=== PATIENT | female | born 1995 | race Caucasian/White ===

== ENCOUNTER → 2018-12-16 | Outpatient (CLI) | payer OTHER ==
--- NOTE | 2018-12-16 16:02 | US ---
EXAMINATION TYPE: Transabdominal DATE OF EXAM: 12/16/2018 3:48 PM COMPARISON: NONE CLINICAL HISTORY: Z36 CONFIRM DATES. EXAM PERFORMED: Transabdominal (TA) EXAM MEASUREMENTS: GESTATIONAL AGE / DATING Physician Established: (11 weeks/1 days) EDC: 07/06/2019 Dates by LMP: (11 weeks/1 days) EDC: 07/06/2019 Dates by First Scan: no previous Dates by Current Scan for: (10 weeks/5 days) EDC: 07/09/2019 MATERNAL ANATOMY Uterus: 10.1 x 7.7 x 9.5 cm Right Ovary: not identified Left Ovary: 3.7 x 2.0 x 2.1 cm Post CDS / Adnexa: wnl Presence of free fluid: no Presence of corpus luteal cyst: no Presence of subchorionic bleed: no GESTATION / SURVEY CRL: 3.8 (10 weeks/5 days) Yolk Sac (normal less than 6mm): 5 mm Heart Rate: 161 bpm Rhythm: Normal IUP: Viable IUP Date of LMP: 09/29/2018 Single live intrauterine gestation is confirmed as gestational sac, yolk sac, pole are identifi ed. No free fluid in pelvic cul-de-sac. Left ovary is seen. Right ovary is not clearly identified. No suspicious adnexal lesions are present. IMPRESSION: Single live intrauterine gestation is confirmed, mean crown-rump length of 3.8 cm corresp onds to 10 week 5 day old fetus.
== END | disposition home or self-care (01) ==
LOC: RADUSWWP 15:34
PROVIDERS: ATTEND Obstetrics & Gynecology
DX: Z36.89 Encounter for other specified antenatal screening (principal); Z3A.10 10 weeks gestation of pregnancy
CPT/HCPCS: 76801

== ENCOUNTER 2019-06-26 02:10 | Inpatient (IN) | payer OTHER ==
[2019-06-26] MEDS ORDERED: CARBOPROST TROMETHAMINE 250 MCG/ML 1 ML AMP IM PRN (02:31)
[2019-06-26] MEDS ORDERED: TERBUTALINE 1 MG/ML VIAL SQ PRN (02:31)
[2019-06-26] MEDS ORDERED: LIDOCAINE 0.5% (PF) 5 MG/ML (50 ML SDV) SQ PRN (02:31)
[2019-06-26] MEDS ORDERED: METHYLERGONOVINE 0.2 MG/ML 1 ML AMP IM PRN (02:31)
[2019-06-26] MEDS ORDERED: OXYTOCIN 10 UNIT/ML 1 ML VIAL IM PRN (02:31)
[2019-06-26] MEDS ORDERED: LACTATED RINGERS 1,000 ML IV SCH (02:45)
[2019-06-26 03:24] LABS: Basophils # (A) 0.1 k/uL (0-0.2); Basophils % (A) 1 %; Eosinophils % (A) 0 %; HCT 37.2 % (34.0-46.0); HGB 12.5 gm/dL (11.4-16.0); Lymphocytes # (A) 3.2 k/uL (1.0-4.8); Lymphocytes % (A) 22 %; MCH 30.4 pg (25.0-35.0); MCHC 33.7 g/dL (31.0-37.0); MCV 90.3 fL (80.0-100.0); Mean Platelet Volume 8.5; Monocytes # (A) 0.7 k/uL (0-1.0); Monocytes % (A) 5 %; Neutrophils # (A) 10.1 k/uL (1.3-7.7); Neutrophils % (A) 70 %; Platelet Count 346 k/uL (150-450); RBC 4.12 m/uL (3.80-5.40); RDW 12.2 % (11.5-15.5); WBC 14.5 k/uL (3.8-10.6)
[2019-06-26 03:35] LABS: Amphetamine Screen,Urine Detected (NotDetected); Barbiturate Screen,Urine Not Detected (NotDetected); Benzodiazepines Screen,Urine Not Detected (NotDetected); Cocaine Screen,Urine Not Detected (NotDetected); Methadone Screen, Urine Not Detected (NotDetected); Opiate Screen,Urine Not Detected (NotDetected); Oxycodone Screen, Urine Not Detected (NotDetected); Phencyclidine Screen,Urine Not Detected (NotDetected); Tricyclic Antidepressant,Urine Not Detected (NotDetected); Urn Cannabinoid Scrn Detected (NotDetected)
[2019-06-26] MEDS ORDERED: BUTORPHANOL 1 MG/ML 1 ML VIAL IV PRN (03:58)
--- NOTE | 2019-06-26 05:22 | P.HPOB ---
History of Present Illness H&P Date: 06/26/19 Chief Complaint: Contractions This is a 23-year-old female 2 para 0 with an estimated date of confinement of 07/06/2019, estimated gestational age of 38-4/7 weeks, who presents to labor and delivery with complaints of contractions that have become stronger. care has been with Dr. Diana and has been uncomplicated per patient. labs: Blood type-O+ Antibody screen-negative Obstetrical ultrasound-normal anatomy One hour Glucola-67 Group B streptococcus-negative Obstetrical history: . History of 1 termination of . 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 History of Any Multi-Drug Resistant Organisms: None Reported Past Surgical History: No Surgical Hx Reported Past Anesthesia/Blood Transfusion Reactions: No Reported Reaction Past Psychological History: No Psychological Hx Reported Smoking Status: Current every day smoker Past Alcohol Use History: None Reported Past Drug Use History: None Reported, Marijuana (Quit using early in ) - Past Family History Mother Family Medical History: No Reported History Medications and Allergies Home Medications Medication Instructions Recorded Confirmed Type No Known Home Medications 06/26/19 06/26/19 History Allergies Allergy/AdvReac Type Severity Reaction Status Date / Time No Known Allergies Allergy Verified 06/26/19 02:28 Exam Osteopathic Statement: *. No significant issues noted on an osteopathic structural exam other than those noted in the History and Physical/Consult. Vital Signs Temp Pulse Resp BP Pulse Ox 06/26/19 02:41 97.3 F L 101 H 18 134/69 98 06/26/19 02:28 97.3 F L 101 H 20 162/86 Intake and Output 06/25/19 06/25/19 06/26/19 14:59 22:59 06:59 Other: Weight 69.4 kg HEENT: Within normal limits Heart: Regular rate and rhythm Lungs: Clear to auscultation bilaterally Abdomen: Cervix: Initially on admission is 5-1/2 cm 100% and -1 station with intact membr anes and some bloody show noted heart tones: Category 1 Contractions: Every 2-3 minutes Extremities: Negative Homans Results Result Diagrams: 06/26/19 02:50 Abnormal Lab Results - Last 24 Hours (Table) 06/26/19 06/26/19 Range/Units 02:50 02:50 WBC 14.5 H (3.8-10.6) k/uL Neutrophils # 10.1 H (1.3-7.7) k/uL Ur Amphetamines Screen Detected H (NotDetected) U Marijuana (THC) Screen Detected H (NotDetected) Assessment and Plan (1) 38 weeks gestation of Current Visit: Yes Status: Acute Code(s): Z3A.38 - 38 WEEKS GESTATION OF SNOMED Code(s): 17999916 Plan: Admission for active labor. Expectant management. Stadol or epidural if desired for pain control.
--- NOTE | 2019-06-26 05:26 | P.PROBDLV ---
Vaginal Delivery Note - . Vaginal Delivery Note: Upon my arrival I checked the patient and she was noted to be 7-8 cm/100%/-1-0 station with bulging bag. She had received Stadol shortly before that time. Artificial rupture membranes is carried out and thin meconium is noted. Shortly thereafter, she had an urge to push and was noted to be complete and +4 station. She began pushing. Infant's head came to a crown. At this time heart tones were intermittent but when we were able to auscultate heart tones, heart tones were noted to be in the 60s. At this point in time, perineum was anesthetized with 1% lidocaine and a small episiotomy was cut. As soon as episiotomy is cut with one further push, the infant's head delivered across the perineum followed by the anterior shoulder. Nose and mouth were bulb suctioned at the perineum. With one further push, the remainder the infant easily delivered and was placed on mother's abdomen. Cord was clamped and cut and infant was taken to warmer for evaluation. WELFARE OFFICER was standing by but baby was crying briskly. A viable female is noted with scores of 8 at 1 minute and 9 at 5 minutes and infant weight of 5 lbs. 11 oz. Placenta delivered shortly thereafter, with a three-vessel cord. Cord blood was obtained secondary to O+ blood type. Uterus contracted fairly well after uterine massage was carried out. IM oxytocin was given due to her IV went subcutaneous. IV was restarted. Inspection of the perineum revealed a midline episiotomy with no further extension. This area was anesthetized with 1% lidocaine and then sutured with 2-0 and 3-0 Vicryl suture in the usual multilayer fashion. There were noted to be bilateral periurethral abrasions that were noted to be hemostatic. Several blood clots were expressed from the uterus and once the IV was running oxytocin was given. Uterus did firm up. Estimated blood loss is approximately 200 mL's.
[2019-06-26] MEDS ORDERED: LANOLIN CREAM 5 GM TUBE TOPICAL PRN (05:33)
[2019-06-26] MEDS ORDERED: OXYTOCIN 20 UNITS/1000 ML NS 1,000 ML IV SCH (05:33)
[2019-06-26] MEDS ORDERED: diphenhydrAMINE 50 MG/ML 1 ML VIAL IVP PRN ×2 (05:33)
[2019-06-26] MEDS ORDERED: diphenhydrAMINE 25 MG CAP PO PRN (05:33)
[2019-06-26] MEDS ORDERED: BENZOCAINE/MENTHOL SPRAY 1 GM/SPRAY AEROSOL TOPICAL PRN (05:33)
[2019-06-26] MEDS ORDERED: ACETAMINOPHEN TAB 325 MG TAB PO PRN (05:33)
[2019-06-26] MEDS ORDERED: HYDROCORTISONE 2.5% RECTAL CREAM 30 GM TUBE RECTAL PRN (05:33)
[2019-06-26] MEDS ORDERED: ZOLPIDEM 5 MG TAB PO PRN (05:33)
[2019-06-26] MEDS ORDERED: SIMETHICONE 80 MG CHEWABLE PO PRN (05:33)
[2019-06-26] MEDS ORDERED: diphenhydrAMINE 50 MG CAP PO PRN (05:33)
[2019-06-26] MEDS ORDERED: WITCH HAZEL 1 EACH MED..PAD TOPICAL PRN (05:33)
[2019-06-26] MEDS: IBUPROFEN 600 MG TAB PO PRN ×2 (05:44→19:50)
[2019-06-26] MEDS ORDERED: DIPH,PERTUS(ACELL)TETVAC-LF 0.5 ML VIAL IM ONE (06:24)
[2019-06-26] MEDS ORDERED: INFLUENZA VACCINE (6 MOS+) 60 MCG/0.5 ML SYRINGE IM ONE (06:24)
[2019-06-26] MEDS: SENNOSIDES-DOCUSATE SODIUM 1 EACH TAB PO SCH ×2 (08:53→20:25)
[2019-06-26 14:07] LABS: Hepatitis B Surface Antigen Non-Reactive (Non-Reactive)
[2019-06-26 16:48] VITALS: RESP 14
[2019-06-27 07:06] LABS: Basophils % (A) 0 %; Eosinophils # (A) 0.1 k/uL (0-0.7); Eosinophils % (A) 0 %; HCT 36.2 % (34.0-46.0); HGB 11.9 gm/dL (11.4-16.0); Lymphocytes # (A) 1.1 k/uL (1.0-4.8); Lymphocytes % (A) 10 %; MCH 30.2 pg (25.0-35.0); MCHC 32.8 g/dL (31.0-37.0); MCV 92.1 fL (80.0-100.0); Mean Platelet Volume 8.5; Monocytes # (A) 0.7 k/uL (0-1.0); Monocytes % (A) 6 %; Neutrophils # (A) 9.4 k/uL (1.3-7.7); Neutrophils % (A) 82 %; Platelet Count 301 k/uL (150-450); RBC 3.93 m/uL (3.80-5.40); RDW 12.3 % (11.5-15.5); WBC 11.5 k/uL (3.8-10.6)
[2019-06-27 08:56] VITALS: BP 119/68; PULSE 68; TEMP 98.2
--- NOTE | 2019-06-27 10:18 | P.DS ---
Providers Date of admission: 06/26/19 02:28 Expected date of discharge: 06/27/19 Attending physician: Loki Diana Primary care physician: Stated None Hospital Course: Really is doing very well day 1. She is ambulating, voiding and tolerating her diet. She voices no complaints and is requesting discharge to home today. Discharge instructions were thoroughly reviewed and all questions were answered for her prior to her discharge. Prescription for Motrin has been provided and she will follow up with me in 6 weeks. On physical exam vital signs are stable and afebrile. Heart regular, lungs clear, extremities without pain. Abdomen soft uterus is firm, and lochia is reported to be light. Assessment post day 1. Plan discharged home Patient Condition at Discharge: Good Plan - Discharge Summary New Discharge Prescriptions: No Action No Known Home Medications Discharge Medication List No Known Home Medications 06/26/19 [History]
[2019-06-27] MEDS: SENNOSIDES-DOCUSATE SODIUM 1 EACH TAB PO SCH (11:14)
[2019-06-27] MEDS: IBUPROFEN 600 MG TAB PO PRN (11:14)
== END 2019-06-27 12:10 | disposition home or self-care (01) | DRG 807 ==
LOC: FBPOP 02:10 → 4FBP 02:28
PROVIDERS: ADMIT Obstetrics & Gynecology; ATTEND Obstetrics & Gynecology
PROC: 10E0XZZ Delivery of Products of Conception, External Approach (ICD-10-PCS; principal; 2019-06-26)
PROC: 0W8NXZZ Division of Female Perineum, External Approach (ICD-10-PCS; 2019-06-26)
DX: O77.0 Labor and delivery complicated by meconium in amniotic fluid (principal); Z37.0 Single live birth; O99.334 Smoking (tobacco) complicating childbirth; F17.200 Nicotine dependence, unspecified, uncomplicated; Z3A.38 38 weeks gestation of pregnancy
CPT/HCPCS: 59025; 80306; 85025; 86762; 86850; 86900; 86901; 87340; 88307; 90471; 90472; 90686; 90715; 99213

== ENCOUNTER 2022-06-23 14:24 | Emergency (ER) | payer OTHER ==
[2022-06-23 14:44] VITALS: RESP 18; TEMP 99
[2022-06-23] MEDS ORDERED: SODIUM CHLORIDE 0.9% 1,000 ML IV STA (15:19)
--- NOTE | 2022-06-23 15:51 | ED ---
URI HPI - General Chief Complaint: Upper Respiratory Infection Stated Complaint: pneumonia, chest pain Time Seen by Provider: 06/23/22 14:56 Source: patient, RN notes reviewed Mode of arrival: ambulatory Limitations: no limitations - History of Present Illness Initial Comments: 26-year-old female presented emergency Department with chief complaint of left- sided rib pain, chest pain. Patient states she's been sick for last 2 weeks states that she was placed on steroids, antibiotics and which urgent care told her she probably has pneumonia. Patient states that her congestion symptoms are improving but she still having left-sided rib pain which is worse with deep inspiration. Patient denies any prior cardiac disease denies any prior lung disease though she is a daily smoker. Patient denies any nausea vomiting diarrhea constipation has not taken any recent Tylenol Motrin. She did not climb to any pain meds. - Related Data Home Medications Medication Instructions Recorded Confirmed Amoxic-Pot Clav 875-125Mg 1 tab PO BID 06/23/22 06/23/22 [Augmentin 875-125] methylPREDNISolone Dose Pack See Taper PO DIRECTED 06/23/22 06/23/22 [Medrol Dose Pack] Previous Rx's Medication Instructions Recorded Ketorolac [Toradol] 10 mg PO Q8HR #15 tab 06/23/22 Allergies Allergy/AdvReac Type Severity Reaction Status Date / Time No Known Allergies Allergy Verified 06/23/22 15:45 Review of Systems ROS Statement: Those systems with pertinent positive or pertinent negative responses have been documented in the HPI. ROS Other: All systems not noted in ROS Statement are negative. 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 History of Any Multi-Drug Resistant Organisms: None Reported Past Surgical History: No Surgical Hx Reported Past Anesthesia/Blood Transfusion Reactions: No Reported Reaction Past Psychological History: No Psychological Hx Reported Smoking Status: Current every day smoker Past Alcohol Use History: None Reported Past Drug Use History: None Reported, Marijuana - Past Family History Mother Family Medical History: No Reported History General Exam Limitations: no limitations General appearance: alert, in no apparent distress Head exam: Present: atraumatic, normocephalic, normal inspection Eye exam: Present: normal appearance, PERRL, EOMI. Absent: scleral icterus, conjunctival injection, periorbital swelling ENT exam: Present: normal exam, normal oropharynx, mucous membranes moist Neck exam: Present: normal inspection, full ROM. Absent: tenderness, meningis mus, lymphadenopathy Respiratory exam: Present: normal lung sounds bilaterally, chest wall tenderness. Absent: respiratory distress, wheezes, rales, rhonchi, stridor, decreased breath sounds Cardiovascular Exam: Present: regular rate, normal rhythm, normal heart sounds. Absent: systolic murmur, diastolic murmur, rubs, gallop, clicks GI/Abdominal exam: Present: soft, normal bowel sounds. Absent: distended, tenderness, guarding, rebound, rigid Course Vital Signs 06/23/22 06/23/22 14:41 16:34 Temperature 99 F Pulse Rate 68 62 Respiratory 18 18 Rate Blood Pressure 128/51 97/61 O2 Sat by Pulse 98 99 Oximetry Medical Decision Making - Medical Decision Making Was pt. sent in by a medical professional or institution? @No Did you speak to anyone other than the patient for history? @No Did you review nursing and triage notes? @Agreed and reviewed Were old charts reviewed? @No Differential Diagnosis? @Chest wall pain, pleurisy, costochondritis, respiratory, pneumonia, herpes zoster, not inclusive list EKG interpreted by me (3pts min.)? @EKG 15:37 sinus bradycardia rate of 59 NC 122 QRS 86 QT/ QTC 400/499 X-rays interpreted by me (1pt min.)? @Chest x-ray no acute process CT interpreted by me (1pt min.)? @ [none] U/S interpreted by me (1pt. min.)? @ [none] What testing was considered but not performed? (CT, X-rays, U/S, labs)? Why? @ None What meds were considered but not given? Why? @Anti-inflammatories, pain meds patient declined Did you discuss the management of the patient with other professionals? @Attending Did you reconcile home meds? @ [none] Was smoking cessation discussed for >3mins.? @ I discussed smoking cessation for greater than 3 minutes. The risk of smoking were discussed with the patient including but not limited to risks of cancer, stroke, coronary artery disease and COPD. Also discussed with patient were multiple methods of quitting smoking. Lastly we discussed the financial cost of smoking. Was critical care preformed (if so, how long)? @ [none] Were there social determinants of health that impacted care today? How? (Homelessness, low income, unemployed, alcoholism, drug addiction, transportation, low edu. Level, literacy, decrease access to med. care, skilled nursing, rehab)? @None Was there de-escalation of care discussed even if they declined? (Discuss DNR or withdrawal of care, Hospice)? @none What co-morbidities impacted this encounter? (DM, HTN, Smoking, COPD, CAD, Cancer, CVA, Hep., AIDS, mental health diagnosis, sleep apnea, morbid obesity)? @Smoking Was patient admitted / discharged? @Discharged Undiagnosed new problem with uncertain prognosis? @ [none] Drug Therapy requiring intensive monitoring for toxicity (Heparin, Nitro, Insulin, Cardizem)? @ [none] Were any procedures done? @ [none] Diagnosis/symptom? @Chest wall pain Acute, or Chronic, or Acute on Chronic? @Acute Uncomplicated (without systemic symptoms) or Complicated (systemic symptoms)? @Unconjugated Side effects of treatment? @ [none] Exacerbation, Progression, or Severe Exacerbation] @ [no] Poses a threat to life or bodily function? @ [no] Diagnosis/symptom? @ -Pleurisy Acute, or Chronic, or Acute on Chronic? @ -Acute Uncomplicated (without systemic symptoms) or Complicated (systemic symptoms)? @ -Uncomplicated Side effects of treatment? @ -[none] Exacerbation, Progression, or Severe Exacerbation] @ -[no] Poses a threat to life or bodily function? @ -[no] 26-year-old female presented for rib, lung pain patient has been sick for last 2 weeks the symptoms related to upper respiratory costochondritis, pleuritic pain. Patient discharged in stable condition return parameters were discussed. - Lab Data Result diagrams: 06/23/22 15:49 06/23/22 15:49 Lab Results 06/23/22 06/23/22 06/23/22 Range/Units 15:49 15:49 15:49 WBC 8.7 (3.8-10.6) k/uL RBC 4.14 (3.80-5.40) m/uL Hgb 12.7 (11.4-16.0) gm/dL Hct 37.0 (34.0-46.0) % MCV 89.5 (80.0-100.0) fL MCH 30.7 (25.0-35.0) pg MCHC 34.3 (31.0-37.0) g/dL RDW 12.1 (11.5-15.5) % Plt Count 298 (150-450) k/uL MPV 8.4 Neutrophils % 73 % Lymphocytes % 20 % Monocytes % 5 % Eosinophils % 0 % Basophils % 1 % Neutrophils # 6.3 (1.3-7.7) k/uL Lymphocytes # 1.8 (1.0-4.8) k/uL Monocytes # 0.4 (0-1.0) k/uL Eosinophils # 0.0 (0-0.7) k/uL Basophils # 0.1 (0-0.2) k/uL D-Dimer 0.22 (<0.60) mg/L FEU Sodium 139 (137-145) mmol/L Potassium 4.1 (3.5-5.1) mmol/L Chloride 108 H (98-107) mmol/L Carbon Dioxide 24 (22-30) mmol/L Anion Gap 7 mmol/L BUN 20 H (7-17) mg/dL Creatinine 0.57 (0.52-1.04) mg/dL Est GFR (CKD-EPI)AfAm >90 (>60 ml/min/1.73 sqM) Est GFR (CKD-EPI)NonAf >90 (>60 ml/min/1.73 sqM) Glucose 118 H (74-99) mg/dL Calcium 8.5 (8.4-10.2) mg/dL Total Bilirubin 0.2 (0.2-1.3) mg/dL AST 23 (14-36) U/L ALT 14 (4-34) U/L Alkaline Phosphatase 54 (38-126) U/L Troponin I (0.000-0.034) ng/mL Total Protein 6.3 (6.3-8.2) g/dL Albumin 3.9 (3.5-5.0) g/dL 06/23/22 Range/Units 15:49 WBC (3.8-10.6) k/uL RBC (3.80-5.40) m/uL Hgb (11.4-16.0) gm/dL Hct (34.0-46.0) % MCV (80.0-100.0) fL MCH (25.0-35.0) pg MCHC (31.0-37.0) g/dL RDW (11.5-15.5) % Plt Count (150-450) k/uL MPV Neutrophils % % Lymphocytes % % Monocytes % % Eosinophils % % Basophils % % Neutrophils # (1.3-7.7) k/uL Lymphocytes # (1.0-4.8) k/uL Monocytes # (0-1.0) k/uL Eosinophils # (0-0.7) k/uL Basophils # (0-0.2) k/uL D-Dimer (<0.60) mg/L FEU Sodium (137-145) mmol/L Potassium (3.5-5.1) mmol/L Chloride (98-107) mmol/L Carbon Dioxide (22-30) mmol/L Anion Gap mmol/L BUN (7-17) mg/dL Creatinine (0.52-1.04) mg/dL Est GFR (CKD-EPI)AfAm (>60 ml/min/1.73 sqM) Est GFR (CKD-EPI)NonAf (>60 ml/min/1.73 sqM) Glucose (74-99) mg/dL Calcium (8.4-10.2) mg/dL Total Bilirubin (0.2-1.3) mg/dL AST (14-36) U/L ALT (4-34) U/L Alkaline Phosphatase (38-126) U/L Troponin I <0.012 (0.000-0.034) ng/mL Total Protein (6.3-8.2) g/dL Albumin (3.5-5.0) g/dL Disposition Clinical Impression: Chest wall pain, Pleurisy Disposition: HOME SELF-CARE Condition: Stable Instructions (If sedation given, give patient instructions): Chest Wall Pain (ED) Additional Instructions: Please return to the Emergency Department if symptoms worsen or any other concerns. Prescriptions: Ketorolac [Toradol] 10 mg PO Q8HR #15 tab Is patient prescribed a controlled substance at d/c from ED?: No Referrals: None,Stated [Primary Care Provider] - 1-2 days Time of Disposition: 17:00
[2022-06-23 16:12] LABS: Basophils # (A) 0.1 k/uL (0-0.2); Basophils % (A) 1 %; Eosinophils % (A) 0 %; HGB 12.7 gm/dL (11.4-16.0); Lymphocytes # (A) 1.8 k/uL (1.0-4.8); Lymphocytes % (A) 20 %; MCH 30.7 pg (25.0-35.0); MCHC 34.3 g/dL (31.0-37.0); MCV 89.5 fL (80.0-100.0); Mean Platelet Volume 8.4; Monocytes # (A) 0.4 k/uL (0-1.0); Monocytes % (A) 5 %; Neutrophils # (A) 6.3 k/uL (1.3-7.7); Neutrophils % (A) 73 %; Platelet Count 298 k/uL (150-450); RBC 4.14 m/uL (3.80-5.40); RDW 12.1 % (11.5-15.5); WBC 8.7 k/uL (3.8-10.6)
--- NOTE | 2022-06-23 16:17 | XR ---
EXAMINATION TYPE: XR chest 2V DATE OF EXAM: 06/23/2022 COMPARISON: NONE HISTORY: Pneumonia. Chest pain TECHNIQUE: 2 view FINDINGS: Heart and mediastinum are normal. Lungs are clear. Diaphragm is normal. Bony thorax appears normal. IMPRESSION: Normal chest
[2022-06-23 16:34] LABS: ALT 14 U/L (4-34); AST 23 U/L (14-36); African American GFR (CKD) >90 (>60 ml/min/1.73 sqM); Albumin 3.9 g/dL (3.5-5.0); Alkaline Phosphatase 54 U/L (38-126); Anion Gap 7 mmol/L; Blood Urea Nitrogen 20 mg/dL (7-17); Calcium 8.5 mg/dL (8.4-10.2); Carbon Dioxide 24 mmol/L (22-30); Chloride 108 mmol/L (98-107); Glucose 118 mg/dL (74-99); Non-African American GFR(CKD) >90 (>60 ml/min/1.73 sqM); Potassium 4.1 mmol/L (3.5-5.1); Sodium 139 mmol/L (137-145); Total Bilirubin 0.2 mg/dL (0.2-1.3); Total Protein 6.3 g/dL (6.3-8.2)
[2022-06-23 16:36] VITALS: BP 97/61; PULSE 62
== END 2022-06-23 17:11 | disposition home or self-care (01) ==
LOC: EC 14:24
DX: R07.89 Other chest pain (principal); R09.1 Pleurisy; F17.200 Nicotine dependence, unspecified, uncomplicated; F12.90 Cannabis use, unspecified, uncomplicated
CPT/HCPCS: 36415; 71046; 80053; 84484; 85025; 85379; 93005; 96360; 99285